=== PATIENT | male | born 1930 | race Caucasian/White ===

== ENCOUNTER 2017-03-31 17:18 | Emergency (ER) | payer MEDICARE | END 2017-03-31 22:36 | disposition home or self-care (01) | LOC: ER 17:18 | DX: I73.9 Peripheral vascular disease, unspecified (principal); N40.0 Benign prostatic hyperplasia without lower urinary tract symptoms | CPT/HCPCS: 73630; 93925; 99284-25 ==

== ENCOUNTER 2017-07-04 11:42 | Observation (INO) | payer MEDICARE ==
[2017-07-04 12:07] LABS: ADD MAN DIFF? NO
[2017-07-04 12:11] LABS: BASO % 1 % (0-3); EOS # 0.1 x10^3/uL (0.0-0.7); EOS % 1 % (0-3); HEMATOCRIT 38.3 % (39.0-53.0); HEMOGLOBIN 12.8 g/dL (13.0-17.5); LYMPH # 1.2 x10^3/uL (1.0-4.8); LYMPH % 30 % (24-48); MEAN CORPUSCULAR HEMOGLOBIN 30 pg (25-35); MEAN CORPUSCULAR HGB CONC 33 g/dL (31-37); MEAN CORPUSCULAR VOLUME 88 fL (79-100); MONO # 0.3 x10^3/uL (0.0-1.1); MONO % 7 % (0-9); NEUT # 2.4 x10^3uL (1.8-7.7); NEUT % 61 % (31-73); PLATELET COUNT 167 x10^3/uL (140-400); RED BLOOD COUNT 4.33 x10^6/uL (4.30-5.70); RED CELL DISTRIBUTION WIDTH 14.8 % (11.5-14.5); WHITE BLOOD COUNT 3.9 x10^3/uL (4.0-11.0)
[2017-07-04 12:13] LABS: AGAP ISTAT 14 mmol/L (6-14); BUN ISTAT 14 mg/dL (8-26); CHLORIDE ISTAT 106 mmol/L (98-110); CREATININE ISTAT 0.8 mg/dL (0.5-1.4); GLUCOSE ISTAT 97 mg/dL (70-99); HEMATOCRIT ISTAT 36 % (37-52); HEMOGLOBIN ISTAT 12.2 g/dL (14-18); ION CA ISTAT 1.04 mmol/L (1.13-1.32); SODIUM ISTAT 141 mmol/L (135-145); TOT CO2 ISTAT 25 mmol/L (23-32)
[2017-07-04 12:20] LABS: TROPONIN BY ISTAT 0.01 ng/ml (<0.08)
[2017-07-04 12:28] LABS: ANION GAP 12 (6-14); BLOOD UREA NITROGEN 14 mg/dL (8-26); BUN/CREATININE RATIO 16 (6-20); CALCIUM 8.6 mg/dL (8.5-10.1); CARBON DIOXIDE 22 mmol/L (21-32); CHLORIDE 106 mmol/L (98-107); CREATININE 0.9 mg/dL (0.7-1.3); GFR 79.5; GLUCOSE 102 mg/dL (70-99); POTASSIUM 4.1 mmol/L (3.5-5.1); SODIUM 140 mmol/L (136-145)
[2017-07-04] MEDS ORDERED: NITROGLYCERIN SUBLINGUAL 0.4 MG BOTTLE OF 25. SL ×2 (12:30→14:45)
[2017-07-04 12:37] LABS: TROPONINI < 0.017 ng/mL (0.000-0.055)
[2017-07-04 12:37] LABS: ALK PHOS 75 U/L (46-116); ALT (SGPT) 18 U/L (16-63); AST (SGOT) 22 U/L (15-37); TOTAL PROTEIN 6.5 g/dL (6.4-8.2)
[2017-07-04 12:40] LABS: NT-PRO BNP 1001 pg/mL (0-449)
[2017-07-04] MEDS ORDERED: CONTRAST GIVEN MC (12:45)
[2017-07-04] MEDS: IOHEXOL 300 MG/ML 100ML VIAL. IV (12:48)
[2017-07-04 12:49] LABS: ALBUMIN 3.3 g/dL (3.4-5.0); LIPASE 114 U/L (73-393); TOTAL BILIRUBIN 0.2 mg/dL (0.2-1.0)
[2017-07-04] MEDS: ASPIRIN CHEWABLE 81 MG TABLET. PO (13:05)
[2017-07-04] MEDS: fentaNYL PF VIAL 100 MCG/2 ML VIAL IV (13:06)
[2017-07-04] MEDS ORDERED: ACETAMINOPHEN 325 MG TABLET. PO (14:45)
[2017-07-04] MEDS ORDERED: MORPHINE SULFATE 4 MG/ML DISP.SYRIN. IV (14:45)
[2017-07-04] MEDS ORDERED: ONDANSETRON PF 4 MG/2 ML VIAL. IV (14:45)
[2017-07-04 18:04] LABS: TROPONINI < 0.017 ng/mL (0.000-0.055)
[2017-07-04] MEDS: LISINOPRIL 5 MG TABLET. PO (18:58)
[2017-07-04] MEDS: ENOXAPARIN 40 MG/0.4 ML SYRINGE. SQ (19:00)
[2017-07-04] MEDS: METOPROLOL TART IMMED RELEASE 25 MG TABLET. PO (20:55)
[2017-07-04 21:30] LABS: TROPONINI < 0.017 ng/mL (0.000-0.055)
[2017-07-05 05:09] LABS: ADD MAN DIFF? NO
[2017-07-05 05:19] LABS: BASO % 0 % (0-3); EOS % 1 % (0-3); HEMATOCRIT 37.3 % (39.0-53.0); HEMOGLOBIN 12.5 g/dL (13.0-17.5); LYMPH # 0.6 x10^3/uL (1.0-4.8); LYMPH % 17 % (24-48); MEAN CORPUSCULAR HEMOGLOBIN 30 pg (25-35); MEAN CORPUSCULAR HGB CONC 34 g/dL (31-37); MEAN CORPUSCULAR VOLUME 88 fL (79-100); MONO # 0.2 x10^3/uL (0.0-1.1); MONO % 5 % (0-9); NEUT # 2.6 x10^3uL (1.8-7.7); NEUT % 76 % (31-73); PLATELET COUNT 145 x10^3/uL (140-400); RED BLOOD COUNT 4.24 x10^6/uL (4.30-5.70); RED CELL DISTRIBUTION WIDTH 14.9 % (11.5-14.5); WHITE BLOOD COUNT 3.4 x10^3/uL (4.0-11.0)
[2017-07-05 05:48] LABS: ANION GAP 5 (6-14); BLOOD UREA NITROGEN 11 mg/dL (8-26); CALCIUM 8.8 mg/dL (8.5-10.1); CARBON DIOXIDE 29 mmol/L (21-32); CHLORIDE 106 mmol/L (98-107); CHOLESTEROL 133 mg/dL (0-200); CREATININE 0.8 mg/dL (0.7-1.3); GLUCOSE 86 mg/dL (70-99); HDLC 40 mg/dL (40-60); LDLC 79 mg/dL (0-100); NON-HDL CHOLESTEROL 93 mg/dL (0-129); POTASSIUM 3.9 mmol/L (3.5-5.1); SODIUM 140 mmol/L (136-145); TRIGLYCERIDES 70 mg/dL (0-150); VLDLC 14 mg/dL (0-40)
[2017-07-05 05:49] LABS: CHOLESTEROL/HDL RATIO 3.3
[2017-07-05] MEDS: LISINOPRIL 5 MG TABLET. PO (08:24)
[2017-07-05] MEDS: ASPIRIN ENTERIC COATED 81 MG TABLET.DR. PO (08:24)
[2017-07-05] MEDS: TAMSULOSIN 0.4 MG CAP.ER.24H. PO (08:25)
[2017-07-05 12:31] LABS: THYROID STIM HORMONE (TSH) 1.365 uIU/mL (0.358-3.74)
[2017-07-05] MEDS ORDERED: METOPROLOL TART IMMED RELEASE 25 MG TABLET. PO (21:00)
== END 2017-07-05 16:50 | disposition home or self-care (01) ==
LOC: ER 11:42 → 2 SOUTH 14:08
DX: I20.9 Angina pectoris, unspecified (principal); I10 Essential (primary) hypertension; I73.9 Peripheral vascular disease, unspecified; N40.0 Benign prostatic hyperplasia without lower urinary tract symptoms; Z79.82 Long term (current) use of aspirin
CPT/HCPCS: 36415; 71045; 71275; 80047; 80048; 80053; 80061; 83690; 83880; 84443; 84484; 85025; 93005; 93306; 96372; 96374; 99285; G0378; G0379; J1650; J3010; Q9967